=== PATIENT | male | born 1935 | race Caucasian/White ===

== ENCOUNTER 2021-06-08 09:34 | Emergency (ER) | payer OTHER ==
[2021-06-08] MEDS ORDERED: OXYMETAZOLINE 0.05% NASAL SOLUTION 15 ML BOTTLE NS ONE (09:58)
[2021-06-08] MEDS ORDERED: TRANEXAMIC ACID 1000 MG/10 ML VIAL IVPUSH ONE (10:00)
[2021-06-08] MEDS ORDERED: TRANEXAMIC ACID 1000 MG/10 ML VIAL ONE (10:00)
[2021-06-08 10:07] VITALS: BP 156/93; PULSE 60; TEMP 97; BMI 26.0
[2021-06-08 11:12] LABS: BASO % 0.3 % (0-2.0); HEMATOCRIT 39.3 % (35.4-49); HEMOGLOBIN 13.4 GM/dL (11.7-16.9); MEAN CELL VOLUME 97.2 fl (80-96); MEAN PLT VOLUME 8.6 fl (7.5-11.1); MONO % 10.4 % (3.8-10.2); NEUT % 73.3 % (42.8-82.8); PLATELET COUNT 179 10^3/uL (134-434); RBC 4.05 M/mm3 (4.00-5.60); RDW 14.1 % (11.9-15.9); WHITE BLOOD COUNT 7.7 K/mm3 (4.0-10.0)
[2021-06-08 11:18] LABS: INR 1.98 (0.83-1.09); PROTHROMBIN TIME (PATIENT) 22.3 SEC (9.7-13.0)
[2021-06-08] MEDS ORDERED: ACETAMINOPHEN 325 MG TABLET (FP) PO ONE (11:37)
[2021-06-08 11:42] LABS: CALCIUM 8.7 mg/dL (8.5-10.1)
[2021-06-08 11:43] LABS: BLOOD UREA NITROGEN 24.1 mg/dL (7-18)
[2021-06-08 11:46] LABS: CREATININE 0.9 mg/dL (0.55-1.3)
[2021-06-08 11:48] LABS: BILIRUBIN,TOTAL 0.8 mg/dL (0.2-1); TOT PROT 6.6 g/dl (6.4-8.2)
[2021-06-08] MEDS ORDERED: ACETAMINOPHEN 325 MG TABLET (FP) ONE (11:51)
== END 2021-06-08 12:20 | disposition short-term general hospital (02) ==
LOC: JER 09:34
PROC: 3E033GC Introduction of Other Therapeutic Substance into Peripheral Vein, Percutaneous Approach (ICD-10-PCS; principal; 2021-06-08)
DX: R04.0 Epistaxis (principal)
CPT/HCPCS: 36415; 80053; 85025; 85610; 86850; 86900; 86901; 93005; 93010; 96374; 99285-25